=== PATIENT | female | born 1975 | race Caucasian/White ===

== ENCOUNTER 2018-11-26 13:40 | Emergency (ER) | payer BC ==
[2018-11-26] MEDS ORDERED: KETOROLAC TROMETHAMINE INJ 30 MG/ML VIAL ONE (14:03)
[2018-11-26] MEDS ORDERED: KETOROLAC TROMETHAMINE INJ 30 MG/ML VIAL IV ONE (14:04)
[2018-11-26] MEDS ORDERED: ONDANSETRON INJ 4 MG/2 ML VIAL IV ONE (14:04)
[2018-11-26] MEDS ORDERED: SODIUM CHLORIDE 0.9% (FLUSH) 10 ML SYG IV PRN (14:04)
[2018-11-26] MEDS ORDERED: SODIUM CHLORIDE 0.9% 1000ML 1,000 ML IVS ONE (14:04)
[2018-11-26] MEDS ORDERED: FAMOTIDINE IV PREMIX 20 MG in PREMIX BAG 1 BAG IVPB ONE (14:06)
--- NOTE | 2018-11-26 14:10 | ED.PDOC ---
History of Present Illness - General Chief Complaint: Problem Stated Complaint: right flank/abdominal pain Time Seen by Provider: 11/26/18 14:04 - History of Present Illness Initial Comments: 43 y/o female is here with h/o renal stones started having severe 10/10 sharp R flank pain for 1 hour,associated with difficulty in urine , no nausea or vomiting , diarrhea or constipation , no fever or chills Severity: severe Improving Factors: nothing Worsening Factors: movement Associated Symptoms: denies symptoms Allergies/Adverse Reactions: Allergies Codeine Allergy (Verified 06/04/15 13:33) Home Medications: Ambulatory Orders Control DAILY 06/04/15 Cyclobenzaprine HCl [Flexeril] 5 mg PO TID PRN #9 tab 06/04/15 Ibuprofen [Motrin Tab] 600 mg PO TID PRN #15 tab 06/04/15 traMADol 37.5MG/APAP 325MG [Ultracet] 1 ea PO Q6H PRN #12 tab 06/04/15 Ciprofloxacin [Cipro] 500 mg PO BID #20 tab 11/26/18 Dicyclomine HCl [Bentyl] 20 mg PO Q6HR PRN #20 tab 11/26/18 Naproxen [Naproxen EC] 500 mg PO BID PRN #12 tab 11/26/18 Review of Systems - Review of Systems Constitutional: States: no symptoms reported EENTM: States: no symptoms reported Respiratory: States: no symptoms reported Cardiology: States: no symptoms reported Gastrointestinal/Abdominal: States: see HPI Musculoskeletal: States: see HPI Skin: States: no symptoms reported Neurological: States: no symptoms reported Hematologic/Lymphatic: States: no symptoms reported All other Systems: Reviewed and Negative Past Medical History (General) - Patient Medical History Hx Seizures: No Hx Hypertension: No Hx Diabetes: No - Vaccination History Hx Influenza Vaccination: No - Social History Hx Tobacco Use: No Family Medical History - Family History Mother Family History: Unknown Living Status: Still Living Physical Exam - Physical Exam General Appearance: Other Eye Exam: bilateral normal Ears, Nose, Throat: hearing grossly normal, normal ENT inspection Neck: non-tender, supple Respiratory: chest non-tender, lungs clear, normal breath sounds, no respiratory distress, no accessory muscle use Cardiovascular/Chest: normal peripheral pulses, regular rate, rhythm Gastrointestinal/Abdominal: soft, no organomegaly, tenderness Extremity: normal range of motion, non-tender, normal inspection Neurologic: no motor/sensory deficits, alert Progress - Progress Progress: 11/26/18 14:51 11/26/18 14:04 IV Care:Saline Lock per Protoc QSHIFT Sodium Chloride 0.9% (Flush) [Saline Flush Syringe] 10 ml IV PRN PRN Sodium Chloride 0.9% 1000ML [Ns 1000 ml] 1,000 ml IVS ONCE URINALYSIS Stat 11/26/18 14:15 EKG STAT Laboratory Results - last 24 hr 11/26/18 11/26/18 11/26/18 14:04 14:04 14:05 WBC 8.1 RBC 4.83 Hgb 15.0 Hct 42.2 MCV 87.3 MCH 31.1 H MCHC 35.6 RDW 12.6 Plt Count 289 MPV 7.8 Absolute Neuts (auto) 4.70 Absolute Lymphs (auto) 2.60 Absolute Monos (auto) 0.60 Absolute Eos (auto) 0.10 Absolute Basos (auto) 0.10 Neutrophils % 58.0 Lymphocytes % 32.6 Monocytes % 7.4 Eosinophils % 0.8 L Basophils % 1.2 Sodium 138 Potassium 3.8 Chloride 105 Carbon Dioxide 22 Anion Gap 14.8 BUN 12 Creatinine 0.78 BUN/Creatinine Ratio 15.4 Random Glucose 90 Serum Osmolality 275.0 Calcium 9.7 Lipase 25 Serum HCG, Qual 11/26/18 14:05 WBC RBC Hgb Hct MCV MCH MCHC RDW Plt Count MPV Absolute Neuts (auto) Absolute Lymphs (auto) Absolute Monos (auto) Absolute Eos (auto) Absolute Basos (auto) Neutrophils % Lymphocytes % Monocytes % Eosinophils % Basophils % Sodium Potassium Chloride Carbon Dioxide Anion Gap BUN Creatinine BUN/Creatinine Ratio Random Glucose Serum Osmolality Calcium Lipase Serum HCG, Qual Negative - EKG/XRAY/CT CT: B/L renal Stones , Fibroid Departure - Departure Clinical Impression: Flank pain, Renal calculus or stone, Kidney symptom or sign Time of Disposition: 14:54 Disposition: Discharge to Home or Self Care Condition: Good Departure Forms: ED Discharge - Pt. Copy, Patient Portal Self Enrollment Instructions: DI for Kidney Stones, DI for Urinary Tract Infection (UTI) Diet: resume usual diet Activity: increase activity as tolerated Referrals: Michelet Kwan MD [Primary Care Provider] - 1-2 Weeks Prescriptions: Dicyclomine HCl [Bentyl] 20 mg PO Q6HR PRN #20 tab PRN Reason: Abdominal Distress Ciprofloxacin [Cipro] 500 mg PO BID #20 tab Naproxen [Naproxen EC] 500 mg PO BID PRN #12 tab PRN Reason: Pain Home Medications: Ambulatory Orders Control DAILY 06/04/15 Cyclobenzaprine HCl [Flexeril] 5 mg PO TID PRN #9 tab 06/04/15 Ibuprofen [Motrin Tab] 600 mg PO TID PRN #15 tab 06/04/15 traMADol 37.5MG/APAP 325MG [Ultracet] 1 ea PO Q6H PRN #12 tab 06/04/15 Ciprofloxacin [Cipro] 500 mg PO BID #20 tab 11/26/18 Dicyclomine HCl [Bentyl] 20 mg PO Q6HR PRN #20 tab 11/26/18 Naproxen [Naproxen EC] 500 mg PO BID PRN #12 tab 11/26/18
[2018-11-26] MEDS ORDERED: FAMOTIDINE IV PREMIX 50 ML IVPB ONE (14:15)
--- NOTE | 2018-11-26 14:42 | CT ---
EXAM DESCRIPTION: Abdoment/Pelvis w/o Contrast CLINICAL HISTORY: 43 years, Female, Flank pain COMPARISON: CT abdomen and pelvis 12/13/2014. TECHNIQUE: CT of the abdomen and pelvis is performed according to non contrast, renal stone protocol. FINDINGS: The lung bases are clear. Right lung base 4 mm subpleural nodularity appears unchanged since 2014, no routine follow-up. The Liver, spleen, and pancreas are unremarkable. The gallbladder is surgically absent. Bilateral small nonobstructing renal calyceal stones are present (two on the right measuring up to five mm, and one on the left measuring up to 4 mm). No obstructing calculus within the ureter. No hydroureteronephrosis. The bilateral kidneys are normal in contour without perinephric fluid collection. The nondistended bladder is normal in appearance. No focal bowel wall thickening or bowel obstruction. Scattered colonic diverticula without evidence of diverticulitis. The appendix is normal. No free fluid within the pelvis. Bulky and globular contour to the uterus likely associated with uterine leiomyomas. Bilateral ovarian follicles, no routine follow-up. No lymphadenopathy. No acute osseous abnormality. IMPRESSION: 1. Bilateral nonobstructing renal calyceal stones (two on the right, one on the left). 2. No hydroureteronephrosis. 3. Prior cholecystectomy. 4. Uterine leiomyomas. This exam was performed according to our departmental dose-optimization program, which includes automated exposure control, adjustment of the mA and/or kV according to patient size and/or use of iterative reconstruction technique. Electronically signed by: Julio Ruiz DO 11/26/2018 2:41 PM CDT
[2018-11-26 15:30] VITALS: BP 153/91; TEMP 97.9; O2SAT 98
== END 2018-11-26 15:29 | disposition home or self-care (01) ==
LOC: ER 13:40
DX: N20.0 Calculus of kidney (principal); D25.9 Leiomyoma of uterus, unspecified; Z90.49 Acquired absence of other specified parts of digestive tract; Z79.899 Other long term (current) drug therapy; Z88.5 Allergy status to narcotic agent
CPT/HCPCS: 74176; 80048; 81001; 83690; 84703; 85025; 93005; J1885; J2405; J3490; J7030

== ENCOUNTER → 2018-12-06 | Outpatient (CLI) | payer BC ==
--- NOTE | 2018-12-07 20:01 | US ---
EXAM DESCRIPTION: Pelvic,Non-OB: Ultrasound. CLINICAL HISTORY: 43 years Female LEIOMYOMA OF UTERUS. Menstrual status unknown. COMPARISON: CT of abdomen and pelvis 11/26/2018. TECHNIQUE: Endovaginal scanning. Rojo-scale and Doppler modes. FINDINGS: Uterus 11.5 x 8.5 x 6.6 cm. 335.5 mL. Endometrial thickness 5.6 mm. The myometrium appears heterogeneous. Hypoechoic mass measuring 4.4 x 3.7 x 3.1. Isoechoic mass measures 3.3 x 2.8 x 2.0 cm. Posterior hypoechoic mass subcapsular measures 5.1 x 4.3 x 4.0 cm. The uterus orientation is difficult to evaluate due to multiple uterine masses, which are displacing the outer capsule.. Anteverted on recent CT scan . Cervix unremarkable.. Cul-de-sac contains moderate amount of fluid. Right ovary 3.3 x 3.2 x 2.3 cm. Normal color Doppler vascularity. Small follicles and no cysts. No adnexal mass or free fluid. Left ovary 3.1 x 2.9 x 2.7 cm. Normal color Doppler vascularity. Small follicle; 2.2 x 2.0 x 1.9 cm simple cyst. Nonvascular anechoic with enhanced sound transmission. No adnexal mass or free fluid. IMPRESSION: 1. Enlarged uterus with at least 3 measurable fibroids. Endometrial thickness may be abnormal, depending on patient's menstrual status. 3 fibroids ranging from 5.1 cm, to 4.4 cm, to 3.3 cm. Consider gynecological consult. Moderate fluid in the cul-de-sac. 2. Bilateral ovaries are present upper normal limits in size. 2.2 cm simple left ovarian cyst. [facility] Best Practice recommendations: No follow-up imaging is recommended. Reference: Radiology 2009;256(3):943-54. No fluid in the adnexa. Electronically signed by: Cory Sorensen MD 12/07/2018 7:59 PM CDT
== END ==
LOC: US 09:07
PROVIDERS: ATTEND Family Medicine
DX: D25.9 Leiomyoma of uterus, unspecified (principal); N85.9 Noninflammatory disorder of uterus, unspecified

== ENCOUNTER → 2019-09-05 | Outpatient (CLI) | payer BC | LOC: GMAJ 16:51 | PROVIDERS: ATTEND Family Medicine | DX: N95.1 Menopausal and female climacteric states (principal) ==